=== PATIENT | male | born 1995 | race Caucasian/White ===

== ENCOUNTER 2019-04-26 09:33 | Emergency (ER) | payer MEDICAID, OTHER ==
[~2019-04-26] VITALS: Ht 175.3 cm; Wt 113.6 kg
[~2019-04-26 09:33] MED LIST: NOCURR
[2019-04-26] MEDS ORDERED: KETOROLAC TROMETHAMINE 60 MG/2 ML VIAL IM ONE (12:15)
[2019-04-26 15:00] VITALS: BP 121/74
== END 2019-04-26 16:30 | disposition home or self-care (01) ==
LOC: EMS 09:36
DX: S52.125A Nondisplaced fracture of head of left radius, initial encounter for closed fracture (principal); F12.90 Cannabis use, unspecified, uncomplicated; V00.131A Fall from skateboard, initial encounter; Y93.51 Activity, roller skating (inline) and skateboarding; Y92.89 Other specified places as the place of occurrence of the external cause; Y99.8 Other external cause status
CPT/HCPCS: 73080; 96372; 99283; J1885